=== PATIENT | female | born 2005 | race Caucasian/White ===

== ENCOUNTER 2023-05-31 03:40 | Emergency (ER) | payer BC ==
[2023-05-31] MEDS ORDERED: Lidocaine 2% Viscous Solution 10 ML, Aluminum & Magnesium Hydroxide 30 ML SSW SCH (05:15)
[2023-05-31] MEDS ORDERED: Dicyclomine 20 MG/2 ML VIAL ONE (05:16)
== END 2023-05-31 06:30 | disposition home or self-care (01) ==
LOC: CSHERS 03:40
DX: R10.9 Unspecified abdominal pain (principal)
CPT/HCPCS: 74018